=== PATIENT | female | born 1955 | race Caucasian/White ===

== ENCOUNTER → 2016-08-14 | Outpatient (CLI) | payer OTHER ==
[~2016-08-14] MED LIST: ALPRAZOLAM PO; LEXAPRO PO; NORCO 10/325 TA1 TAB PO; WELLBUTRIN PO
--- NOTE | ~2016-08-14 | MY11 ---
[facility] A Service of [facility] RADIOLOGY TEXT RESULTS PATIENT: LOLITA AU LOCATION: [facility] : 57 UNIT #: [id number] AGE: [address]: Lizy Parra SEX: F ORDER DR: [id number] [facility] [address] [place], [place] [address] [id number] O MR#: [id number] Acc #: [id number] NAME: LOLITA AU : 1955 SEX: F STUDY DATE/TIME: 08/14/2016 7:44 UNIT: [facility] ROOM: STUDY DESCRIPTION: MY Mammogram Screening Dig Deng Attending Physician: Lizy Parra A.P.R.N. Referring Physician: Lizy Parra A.P.R.N. Ordering Physician: Lizy Parra A.P.R.N. Primary Care Physician: Lizy Parra A.P.R.N. MEDICAL IMAGING REPORT This report is preliminary unless electronic signature is present EXAM Digital screening mammogram, 08/14/2016. HISTORY 61-year-old woman with positive family history, paternal grandmother and paternal aunt. Annual screening. COMPARISON STUDIES Comparison mammograms 07/04/2004, 10/08/2006, 03/07/2014. FINDINGS Digital imaging of each breast was completed utilizing a two-view examination of each breast in craniocaudal and mediolateral-oblique projections. Review and interpretation of digital mammograms include a second review in conjunction with FDA-approved CAD device. There is a normal parenchymal presentation bilaterally consistent with the patient's age. There are no breast masses imaged and no parenchymal asymmetry is visualized. There are no suspicious microcalcifications and I see no focal architectural disturbance. NOTE Breast parenchyma is fatty replaced. IMPRESSION Negative screening digital mammogram. One-year followup recommended. Patients over the age of 40 are entered into a reminder system with target due date for the next mammogram. A result letter will also be sent to the patient. BIRADS: 1 Negative [facility] A Service of [facility] RADIOLOGY TEXT RESULTS PATIENT: LOLITA AU LOCATION: [facility] : 57 UNIT #: [id number] AGE: [address]: Lizy Parra SEX: F ORDER DR: Dictated by... Yovany Cochran M.D. THIS IS AN ELECTRONICALLY VERIFIED REPORT Yovany Cochran M.D. at 08/14/2016 2:37 PM PATIENCE/cal TD: 08/14/2016 14:14 JOB #: [id number] MEDICAL IMAGING REPORT Page 1 of 1 COPY
== END | disposition home or self-care (01) ==
LOC: CWCC 07:25
DX: Z12.31 Encounter for screening mammogram for malignant neoplasm of breast (principal); Z80.3 Family history of malignant neoplasm of breast
CPT/HCPCS: G0202